=== PATIENT | male | born 1970 | race Caucasian/White ===

== ENCOUNTER 2021-09-29 17:33 | Emergency (ER) | payer OTHER, SELFPAY ==
--- NOTE | ~2021-09-29 | XR_ITS ---
EXAMINATION: XR chest 2V Exam Date/Time: 09/29/2021 18:12 CDT CLINICAL HISTORY: cough fever x3 days/cough since covid in June Comparison: None available. RESULT: Lines, tubes, and devices: None. Lungs and pleura: Clear. Ill-defined opacities in the bilateral lower lungs likely reflect overlying soft tissues. Cardiomediastinal silhouette: Normal cardiomediastinal silhouette. Other: No acute osseous or upper abdominal finding. Degenerative changes in the spine. IMPRESSION: No acute cardiopulmonary process Reviewed, dictated and finalized at location K.
[2021-09-29 17:43] VITALS: BP 149/74; PULSE 91; RESP 20; TEMP 37; O2SAT 98
--- NOTE | 2021-09-29 17:56 | ED.URI ---
HPI - URI/Sore Throat General Chief Complaint: Upper Respiratory Infection Stated Complaint: cough/fever/charlton Time Seen by Provider: 09/29/21 17:56 Source: patient Mode of arrival: ambulatory Limitations: no limitations History of Present Illness HPI Narrative: Josué Galvan is a 51 yo male with a PMH of HTN, high cholesterol, seasonal allergies, who comes to [facility] for complaints of cough that have not gone away since he had COVID at the end of June. Started coughing on Friday and is gradually gotten worse and today now has a low-grade fever and he is concerned about worsening symptoms. complaining of mild congestion Related Data Home Medications Medication Instructions Recorded Confirmed lisinopril 20 mg tablet 20 mg PO DAILY 08/21/20 09/29/21 atorvastatin 20 mg PO DAILY 09/29/21 09/29/21 montelukast 10 mg PO DAILY 09/29/21 09/29/21 Allergies Allergy/AdvReac Type Severity Reaction Status Date / Time No Known Drug Allergies Allergy Unknown Unknown Verified 09/29/21 17:39 Review of Systems Review of Systems: CONSTITUTIONAL: Denies fever, chills, sweats. EYES: Denies visual changes, redness, discharge. ENT: Denies rhinorrhea, some congestion, sore throat, left otalgia. CARDIOVASCULAR: Denies chest pain, palpitations, edema. RESPIRATORY: Denies dyspnea, wheezing, has dry cough GASTROINTESTINAL: Denies abdominal pain, nausea, vomiting, diarrhea. GENITOURINARY: Denies dysuria, hematuria, abnormal discharge SKIN: Denies rash or itching. NEUROLOGIC: Denies numbness, or focal weakness. PSYCHIATRIC: Denies anxiety or depression. [facility] Past Medical History Medical History Acquired cavovarus deformity of left foot High cholesterol HTN (hypertension) Peroneal tendinitis of left lower leg Surgical History Surgical History History of foot surgery Dr. Radha Vergara Family History Family History Father Family history of diabetes mellitus in first degree relative Acute myocardial infarction Heart disease Diabetes mellitus Mother Cerebrovascular accident Other Family history of cardiovascular disease Hypertension Social History Social History (Reviewed 09/29/21 @ 18:15 by PRIMO Wilkins Smoking status: Never smoker Alcohol intake: never Substance use: never Substance use type: does not use Gender identity (if verbalized by the patient): Male Comments At time of signature, I agree with nursing past medical, surgical, social and family history. There is no relevant family history pertinent to the presenting complaint. Blood pressure elevated at this visit Exam Narrative: GENERAL: This is a well-nourished, well-developed patient, in mild distress. HEAD: normocephalic, atraumatic. EYES: Sclera clear/white. Vision is grossly intact. EARS: External ears normal, left auditory canals erythema and without drainage, bulging TM . Hearing grossly intact. NOSE: External nose normal without nasal discharge, nares without redness, no rhinorrhea. THROAT: Mucous membranes moist, NECK: Neck supple, non-tender CARDIOVASCULAR: Regular rate and rhythm without murmurs, gallops, or rubs. He has dry cough during exam RESPIRATORY: Coarse to auscultation. Breath sounds equal bilaterally. No wheezes, rales, or rhonchi. GASTROINTESTINAL: Abdomen soft SKIN: warm, intact with no suspicious lesions or rash, good texture and turgor. NEURO: awake, alert, and oriented to person, place and time. There were no obvious focal neurologic abnormalities. Steady gait EXTREMITIES: Normal range of motion. BACK: Nontender without deformity Course Course Emergency Course: Patient here with complaints of cough and increased congestion and low-grade fever that started today. He had been increased coughing since Friday Flu test done-negative C
[2021-09-29 18:55] VITALS: PULSE 91; RESP 20; O2SAT 98
[2021-09-29] MEDS: ALBUTEROL SULFATE NEB 2.5 MG/3 ML INH INHALATION (19:01)
[2021-09-29] MEDS: predniSONE 20 MG TABLET 60 MG PO (19:01)
[2021-09-29 19:10] VITALS: PULSE 88; RESP 18; O2SAT 98
== END 2021-09-29 19:30 | disposition home or self-care (01) ==
PROVIDERS: Emergency Provider Nurse Practitioner; PCP Internal Medicine
DX: J20.9 Acute bronchitis, unspecified (principal); I10 Essential (primary) hypertension
CPT/HCPCS: 71046; 87804; 94640; 99213; G0463; J7512

== ENCOUNTER 2021-12-31 08:28 | Outpatient (CLI) | payer OTHER, SELFPAY ==
--- NOTE | 2021-12-31 | ECHO_ITS ---
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 Summary 1. Complete two-dimensional, color flow and Doppler transthoracic echocardiogram is performed. 2. Left ventricular chamber dimension is normal. 3. Left ventricular systolic function is normal, estimated at 55-60%. 4. The left ventricular diastolic function is abnormal. 5. E/e' 11 is mildly elevated. 6. Right ventricular chamber dimension is moderately enlarged. 7. Right ventricular systolic function is moderately reduced. 8. There is mild aortic valve sclerosis. 9. No pulmonary hypertension, estimated pulmonary arterial systolic pressure is 24 mmHg. Left Ventricle E/e' 11 is mildly elevated. Left ventricular chamber dimension is normal. Left ventricular systolic function is normal, estimated at 55-60%. The left ventricular diastolic function is abnormal. Right Ventricle Moderator band noted is normal variant. Right ventricular chamber dimension is moderately enlarged. Right ventricular systolic function is moderately reduced. Left Atria Left atrial chamber dimension is normal. Right Atria Right atrial chamber dimension is moderately enlarged. Aortic Valve The aortic valve is trileaflet. There is mild aortic valve sclerosis. There is no aortic valve stenosis. There is no aortic valve regurgitation. Pulmonic Valve There is no pulmonic regurgitation. Mitral Valve There is no mitral valve stenosis. There is no mitral valve regurgitation. Tricuspid Valve There is no tricuspid valve regurgitation. No pulmonary hypertension, estimated pulmonary arterial systolic pressure is 24 mmHg. Pericardium/Pleural There is no pericardial effusion. Inferior Vena Cava Normal inferior vena cava with >50% collapse upon inspiration consistent with normal right atrial pressure, 5 mmHg. Aorta The aortic root size at the sinus of Valsalva is normal. Left Ventricular Outflow Tract Name Value Normal LVOT 2D LVOT Diameter 2.3 cm LVOT Doppler LVOT Peak Gradient 3 mmHg LVOT Mean Gradient 2 mmHg LVOT VTI 19 cm LVOT VTI/AV VTI Ratio 1.1 LVOT Stroke Volume 79 ml LVOT CO 5.5 l/min LVOT CI 2.2 l/min/m2 Pulmonic Valve Name Value Normal
== END 2021-12-31 08:29 | disposition home or self-care (01) ==
PROVIDERS: PCP Internal Medicine; Visit Provider Internal Medicine
DX: Q23.1 Congenital insufficiency of aortic valve (principal)
CPT/HCPCS: 93306

== ENCOUNTER 2023-08-10 17:56 | Emergency (ER) | payer OTHER, SELFPAY ==
--- NOTE | 2023-08-10 18:03 | ED.GENADULT ---
HPI - General Adult General Chief complaint: Ear Stated complaint: Lt Ear Irritation Time Seen by Provider: 08/10/23 18:03 Source: patient Mode of arrival: ambulatory Limitations: no limitations History of Present Illness HPI narrative: 53-year-old male patient presents to the [facility] with complaints of left ear pain. Patient states pain in the ear has been off and on for the past week but is got more consistent since yesterday. Denies any fevers body aches or chills. Denies any runny nose, sore throat or sneezing. Patient states he does typically wear hearing aids to bilateral ears. Denies any discharge from the ear. Denies any recent trauma to the ear. Related Data Home Medications Medication Instructions Recorded Confirmed cholecalciferol (vitamin D3) 50 50 mcg PO DAILY 08/29/22 04/16/23 mcg (2,000 unit) capsule mecobalamin (vitamin B12) 1,000 1,000 mcg PO DAILY 08/29/22 04/16/23 mcg chewable tablet omega 8-rxk-hym-fish oil 1,000 mg 1 cap PO DAILY 08/29/22 04/16/23 (120 mg-180 mg) capsule (Fish Oil) rosuvastatin 20 mg tablet 20 mg PO DAILY 10/28/22 04/16/23 psyllium husk 0.52 gram capsule 0.52 g PO DAILY 08/10/23 08/10/23 (Fiber-Caps (psyllium husk)) Allergies Allergy/AdvReac Type Severity Reaction Status Date / Time No Known Drug Allergies Allergy Unknown Unknown Verified 08/10/23 18:05 Review of Systems Review of Systems: CONSTITUTIONAL: Denies fever, chills, or sweats. EYES: Denies visual changes, redness, or discharge. ENT: Denies rhinorrhea, congestion, sore throat, Positive left otalgia. CARDIOVASCULAR: Denies chest pain, palpitations, or edema. RESPIRATORY: Denies cough or dyspnea. GASTROINTESTINAL: Denies abdominal pain, nausea, vomiting, or diarrhea. GENITOURINARY: Denies dysuria or hematuria. SKIN: Denies rash or itching. MUSCULOSKELETAL: Denies back pain, joint pain, or myalgia. NEUROLOGIC: Denies headache, numbness, or weakness. PSYCHIATRIC: Denies anxiety or depression. [facility] Past Medical History Medical History Abnormal skin growth Acquired cavovarus deformity of left foot Annual physical exam Atypical nevi BPH (benign prostatic hyperplasia) Encounter for screening for malignant neoplasm of prostate Establishing care with new doctor, encounter for High cholesterol HTN (hypertension) Hyperglycemia Peroneal tendinitis of left lower leg Surgical History Surgical History History of foot surgery Dr. Radha Vergara History of tonsillectomy Family History Family History Father Family history of diabetes mellitus in first degree relative Acute myocardial infarction Heart disease Diabetes mellitus Mother Cerebrovascular accident Other Family history of cardiovascular disease Hypertension Social History Social History Smoking status: Never smoker Alcohol intake: never Substance use: never Substance use type: does not use Living arrangements: with family Occupation/Education: occupation Gender identity (if verbalized by the patient): Male Agree to blood products: Yes Comments At the time of my signature I agree with nursing past medical history, surgical, social, and family history. There is no relevant family history pertinent to the presenting complaint. Exam Narrative: GENERAL: Well-appearing, well-nourished, and in no acute distress. HEAD: Normocephalic, atraumatic. EYES: PERRLA and EOMI. ENT: Nares clear, no rhinorrhea or epistaxis. Mucous membranes moist. posterior pharynx with no erythema, tonsillar enlargement, exudates or lesions present. The left ear does appear to have little bit of fluid behind the eardrum but no erythema, no bulging no concerns for infection at this time. NECK: Supple. No lymphadenop
[2023-08-10 18:05] VITALS: BP 140/81; PULSE 70; RESP 18; TEMP 36.4; O2SAT 100
[2023-08-10 18:07] VITALS: BP 140/81; PULSE 70; RESP 18; TEMP 36.4; O2SAT 100
== END 2023-08-10 18:21 | disposition home or self-care (01) ==
PROVIDERS: Emergency Provider Nurse Practitioner Family; PCP Family Medicine
DX: H73.892 Other specified disorders of tympanic membrane, left ear (principal); N40.0 Benign prostatic hyperplasia without lower urinary tract symptoms; E78.00 Pure hypercholesterolemia, unspecified; I10 Essential (primary) hypertension
CPT/HCPCS: 99211; 99213; G0463

== ENCOUNTER 2023-09-12 15:50 | Outpatient (CLI) | payer OTHER, SELFPAY ==
--- NOTE | ~2023-09-12 | MR_ITS ---
EXAMINATION: MR shoulder LT wo con DATE: 09/12/2023 16:42 INDICATION: Left rotator cuff tear. Left upper arm pain. TECHNIQUE: Magnetic resonance imaging (MRI) of the left shoulder was performed without intravenous co ntrast. Sequences included axial PD-weighted FS FSE, coronal oblique PD-weighted FS FSE and T2-weight ed FS FSE, and sagittal oblique T2-weighted FS FSE and T1-weighted FSE. COMPARISON: None. FINDINGS: Coracoacromial arch: The acromion undersurface is flat in morphology (type I). There is severe acromioclavicular joint ost eoarthritis including inferiorly directed osteophytes. There is mild subacromial/subdeltoid bursitis. Rotator cuff: There is an articular sided partial tear of supraspinatus and infraspinatus tendons measuring 2.5 cm anterior to posterior by 2.4 cm proximal to distal by 60% tendon thickness. Teres minor tendon is nor mal. There is moderate subscapularis tendinopathy. There is edema at the myotendinous junction of ter es minor, consistent with mild strain. There is no asymmetric fatty atrophy of the rotator cuff muscl e bellies. Biceps tendon and glenoid labrum: There is a complete tear of proximal biceps tendon. There is degenerative tearing of the glenoid labr um. Fluid: There is a small glenohumeral joint effusion. Bones/cartilage: There is shallow partial-thickness cartilage loss of humeral head and glenoid. IMPRESSION: 1. Articular-sided, partial-thickness tear of supraspinatus and infraspinatus tendons. 2. Mild glenohumeral joint chondrosis. 3. Complete tear of proximal biceps tendon. 4. Severe acromioclavicular joint osteoarthritis. 5. Small glenohumeral joint effusion. 6. Mild subacromial/subdeltoid bursitis. Reviewed, dictated and finalized at location E. IMPRESSION: 1. Articular-sided, partial-thickness tear of supraspinatus and infraspinatus t endons. 2. Mild glenohumeral joint chondrosis. 3. Complete tear of proximal biceps tendon. 4. Severe acromioclavicular joint osteoarthritis. 5. Small glenohumeral joint effusion. 6. Mild subacromial/subdeltoid bursitis.
== END 2023-09-12 15:51 ==
DX: M75.112 Incomplete rotator cuff tear or rupture of left shoulder, not specified as traumatic (principal); M94.212 Chondromalacia, left shoulder; S46.212A Strain of muscle, fascia and tendon of other parts of biceps, left arm, initial encounter; M19.012 Primary osteoarthritis, left shoulder; M25.412 Effusion, left shoulder; M75.52 Bursitis of left shoulder; X58.XXXA Exposure to other specified factors, initial encounter
CPT/HCPCS: 73221

== ENCOUNTER 2024-12-19 12:05 | Emergency (ER) | payer OTHER, SELFPAY ==
--- NOTE | ~2024-12-19 | CT_ITS ---
EXAMINATION: CT abdomen pelvis wo con DATE: 12/19/2024 14:43 INDICATION: R CVA TTP, hx herniated disc; R back pain TECHNIQUE: Computed tomography (CT) of the abdomen and pelvis was performed without intravenous contr ast. Automated exposure control and iterative reconstruction technique were employed. The dose-length product was 1082.64 mGy-cm. COMPARISON: None. FINDINGS: Lower thorax: Motion artifact in the lung bases. Liver: Nodular liver border. Recanalized umbilical vein. Biliary/Gallbladder: Gallbladder is normal. No bile duct dilation. Pancreas: No mass or duct dilation. Spleen: Enlarged. Adrenals:No mass. Kidneys: Punctate right lower pole calcification. Mild right perinephric stranding and periureteral s tranding. Mild right hydronephrosis. Small left upper pole AML. GI tract: Small hiatal hernia. Single loop of mildly dilated small bowel in the left upper quadrant, with gradual transition points and no obstructing mass or other lesion detected. Normal appendix. Mesentery/Peritoneum: Enlarged upper mesenteric and portacaval nodes. No ascites, other mass, or free air. Retroperitoneum: No mass. Atherosclerotic calcifications of intra-abdominal arterial vessels. Pelvis: 4 mm calcification in the bladder lumen. Urinary bladder otherwise normal. Prostatomegaly. Soft Tissues: Small uncomplicated bilateral inguinal hernias. Small umbilical hernia containing mesen teric fat and mesenteric vessels. Bones: No acute osseous finding. Multilevel severe lumbar degenerative disc disease. Multilevel face t arthropathy. Severe bilateral neural foraminal narrowing at L5-S1 secondary to degenerative changes . Severe central canal narrowing at L1-2 through L3-4 secondary to degenerative changes. IMPRESSION: 4 mm calcification in the urinary bladder lumen with mild right perinephric and periureteral strandin g and mild right hydronephrosis likely representing a recently passed stone. Cirrhosis with portal hypertension. Single loop of dilated small bowel in the left upper quadrant, presumably reflecting focal ileus. Ear ly obstruction is not excluded. Upper abdominal lymphadenopathy. No acute fracture or traumatic malalignment detected in the lumbar spine. Multilevel severe degenerat john disc disease. Multilevel severe central canal narrowing and severe bilateral neural foraminal gold rowing at L5-S1 secondary to degenerative changes. Reviewed, dictated and finalized at location K. IMPRESSION: 4 mm calcification in the urinary bladder lumen with mild right perinephric and periureteral stranding and mild right hydronephrosis likely representing a rec ently passed stone. Cirrhosis with portal hypertension. Single loop of dilated small bowel in the left upper quadrant, presumably refle cting focal ileus. Early obstruction is not excluded. Upper abdominal lymphadenopathy. No acute fracture or traumatic malalignment detected in the lumbar spine. Multi level severe degenerative disc disease. Multilevel severe central canal narrowi ng and severe bilateral neural foraminal narrowing at L5-S1 secondary to degene rative changes.
--- OUTSIDE RECORDS SUMMARY | 2024-12-19 12:07 | XMS_ITS | Clinical Summary ---
Author Organization [facility] Address [address] [place] [address] Care Team Providers Care Security Alarm Installer Name Role Phone Lucila Burrell PA-C Primary Care Provider +1- [phone] Allergies No known active allergies Medications pantoprazole EC (PROTONIX) 40 MG tablet Take 1 tablet (40 mg total) by mouth daily. 09/25/19 23 Active OPZELURA 1.5 % Cream Apply topically see administration instructions. 09/25/19 23 Active vitamin B-12 (CYANOCOBALAMIN) (CYANOCOBALAMIN) 1000 mcg tablet Take 1 tablet (1,000 mcg total) by mouth daily. Active Vitamin D3 (CHOLECALCIFEROL ) 50 mcg tablet Take 1 tablet (50 mcg total) by mouth daily. Active fish oil (OMEGA-3 FATTY ACID) 1000 MG Cap capsule Take 1 capsule (1,000 mg total) by mouth daily. Active losartan (COZAAR) 25 MG tabletIndication s:Primary hypertension Take 1 tablet (25 mg total) by mouth daily. 10/29/19 23 Active polycarbophil (FIBER) 625 MG tablet Take 1 tablet (625 mg total) by mouth daily. Active rosuvastatin (CRESTOR) 20 MG tabletIndication s:Hyperlipidemia , mixed,Coronary artery calcification,Co ronary artery disease involving [place] coronary artery of [place] heart without angina pectoris TAKE 1 TABLET NIGHTLY AT BEDTIME 90 tablet 2 04/21/20 24 Active Active Problems Problem Noted Date Diagnosed Date Encounter for screening colonoscopy 02/17/2023 Overview (02/17/2023): Added automatically from request for surgery [id number] Resolved Problems Problem Noted Date Diagnosed Date Resolved Date Screening for colon cancer 04/22/2023 1 06/29/2022 Screening for colon cancer 04/22/2023 1 07/20/2022 Screening for colon cancer 04/22/2023 0 06/16/2023 Screening for colon cancer 04/22/2023 0 06/23/2023 Screening for colon cancer 04/22/2023 0 06/30/2023 Family History Medical History Relation Comments Diabetes Father Heart Attack Father Hyperlipidemia Father Hypertension Father Stroke Mother Atrial fibrillation Sister Hypertension Sister Relation Status Comments Brother Alive Father Mother Sister Alive Social History Tobacco Use Types Packs/Day Years Used Date Smoking Tobacco: Never Smokeless Tobacco: Never Tobacco Cessation:Counseling Given: Not Answered Alcohol Use Standard Drinks/Week Comments Not Currently 0 (1 standard drink = 0.6 oz pur e alcohol) PHQ-2 Answer Date Recorded Patient Health Questionnaire-2 Score 0 02/14/2023 Sex and Gender Information Value Date Recorded Sex Assigned at Not on file Legal Sex Male 7:57 PM CDT Gender Identity Not on file Sexual Orientation Not on file Occupation Industry Job Start Date Job End Date Teacher Not on file Not on file Not on file Last Filed Vital Signs Vital Sign Reading Time Taken Comments Blood Pressure 132/76 03/22/2024 2:27 PM CDT Pulse 82 03/22/2024 2:27 PM CDT Temperature 36.6 C (97.8 F) 06/25/2023 11:34 AM CLINICAL BUSINESS ANALYST Respiratory Rate 16 06/25/2023 11:3 4 AM CLINICAL BUSINESS ANALYST Oxygen Saturation 95% 03/22/2024 2:27 PM CDT Inhaled Oxygen Concentration - - Weight 134.6 kg (296 lb 12.8 oz) 03/22/2024 2:27 PM CDT Height 177.8 cm (5' 10) 03/22/2024 2:27 PM CDT Body Mass Index 42.59 03/22/2024 2:27 PM CDT Plan of Treatment Health Maintenance Due Date Last Done Comments Annual Physical 1971 Hepatitis C 1986 DTaP, Tdap and Td Vaccines (1 - Tdap) 1987 Hepatitis B Vaccines (1 of 3 - 19+ 3-dose series) 1987 Pneumococcal Vaccine: 50+ Years (1 of 2 - PCV) 1987 ASCVD LDL 12/28/2023 12/27/2022, 09/0 07/2020, 01/03/2018, Additional history exists COVID-19 Vaccine ( - 2023- season) 2024 03/28/2021, 08/05/2020, 07/08/2020 PHQ-2 (Physician [place]) 05/26/2024 02/14/2023 Colorectal Cancer Screening Colonoscopy (10 Years) 06/25/2033 06/25/2023 Zoster Vaccines Completed 07/07/2022, 04/16/2022 Meningococcal B Vaccine Aged Out No l onger eligible based on patient's age to complete this topic Meningococcal Vaccine Aged Out No lili shawn eligible based on patient's age to complete this topic RSV Immunizations Under 20 Months Aged Out No longer eligible based on patient's age to complete this topic Procedures Procedure Name Priority Date/Time Associated Diagnosis Comments LIPID PANEL Routine 12/27/2022 from Last 3 Months or Most Recently Relevant to Health Maintenance Results * LIPID PANEL (12/27/2022) CHOLESTEROL 121 HDL 33 TRIGLYCERIDES 184 NON HDL CHOLESTEROL 88 LDL (CALCULATED) 62 12/27/2022 us Default History Genericprovider LABORATORY Final Result from Last 3 Months or Most Recently Relevant to Health Maintenance Insurance Care Teams Security Alarm Installer Relationship Specialty Start Date End Date Lucila Burrell PA-C [address] [place] [address] [address] [place] [address] PCP - General PHYSICIAN TIRE SHOP MANAGER 09/10/22
--- OUTSIDE RECORDS SUMMARY | 2024-12-19 12:07 | XMS_ITS | Encounter Summary ---
Author Organization [facility] Address [address] [place] [address] Care Team Providers Care Strainer Mill Operator Name Role Phone Lucila Burrell PA-C Primary Care Provider +1- [phone] Encounter Details Date Type Department Care Team (Late st Contact Info) Description 12/30/2022 Abstract [facility], [address] [address] Hima Chery MA Social History Tobacco Use Types Packs/Day Years Used Date Smoking Tobacco: Never Smokeless Tobacco: Never Alcohol Use Standard Drinks/Week Comments Not Currently 0 (1 standard drink = 0.6 oz pur e alcohol) PHQ-2 Answer Date Recorded Patient Health Questionnaire-2 Score 0 01/03/2023 Sex and Gender Information Value Date Recorded Sex Assigned at Not on file Legal Sex Male 7:57 PM CDT Gender Identity Not on file Sexual Orientation Not on file Occupation Industry Job Start Date Job End Date Teacher Not on file Not on file Not on file documented as of this encounter Plan of Treatment Not on file documented as of this encounter Procedures Procedure Name Priority Date/Time Associated Diagnosis Comments LIPID PANEL Routine 12/27/2022 documented in this encounter Results * LIPID PANEL (12/27/2022) CHOLESTEROL 121 HDL 33 TRIGLYCERIDES 184 NON HDL CHOLESTEROL 88 LDL (CALCULATED) 62 12/27/2022 us Default History Genericprovider LABORATORY Final Result documented in this encounter Visit Diagnoses Not on filedocumented in this encounter Care Teams Strainer Mill Operator Relationship Specialty Start Date End Date Lucila Burrell PA-C [address] [place] [address] [address] [place] [address] PCP - General PHYSICIAN FILTRATION OPERATOR 09/10/22 documented as of this encounter
--- OUTSIDE RECORDS SUMMARY | 2024-12-19 12:07 | XMS_ITS | Encounter Summary ---
Author Organization [facility] Address [facility] [place] [address] Care Team Providers Care Cloth Grader Name Role Phone Lucila Burrell PA-C Primary Care Provider +1- [phone] Encounter Details Date Type Department Care Team (Late st Contact Info) Description 06/27/2023 D square nv Message Enc [facility] [address] [address] Jaskaran Umanzor MD [address] [place] [phone] colonoscopy Social History Tobacco Use Types Packs/Day Years [...] on file documented as of this encounter Visit Diagnoses Not on filedocumented in this encounter Care Teams Cloth Grader Relationship Specialty Start Date End Date Lucila Burrell PA-C [address] [place], [place] [address] [place] [address] PCP - General PHYSICIAN ROOFER GYPSUM 09/10/22 documented as of this encounter
--- OUTSIDE RECORDS SUMMARY | 2024-12-19 12:07 | XMS_ITS | Encounter Summary ---
Author Organization [facility] Address [address] [place] [address] Care Team Providers Care Talent Development Consultant Name Role Phone Lucila Burrell PA-C Primary Care Provider +1- [phone] Encounter Details Date Type Department Care Team (Late st Contact Info) Description 12/29/2023 GüvenRehberi Message Enc [place] [facility] [facility], [address] [place], [place] [id number] Eder Wall MD Three [facility] [address] [place] [address] Blood work Social History Tobacco Use Types Packs/Day Years [...] on filedocumented in this encounter Care Teams Talent Development Consultant Relationship Specialty Start Date End Date Lucila Burrell PA-C [address] [place], [place] [address] [place] [address] PCP - General PHYSICIAN CARPENTER ASSISTANT INSTALLER 09/10/22 documented as of this encounter
[2024-12-19 12:21] VITALS: BP 152/68; PULSE 66; RESP 14; TEMP 36.6; O2SAT 98
--- OUTSIDE RECORDS SUMMARY | 2024-12-19 13:18 | XMS_ITS | Encounter Summary ---
Author Organization [facility] Address [facility] [place] [address] Care Team Providers Care Swim Instructor Name Role Phone Lucila Burrell PA-C Primary Care Provider +1- [phone] Encounter Details Date Type Department Care Team (Late st Contact Info) Description 06/27/2023 Mobilitrix Message Enc [facility] [address] [address] Jaskaran Umanzor MD [address] [place] [phone] colonoscopy Social History Tobacco Use Types [...] on filedocumented in this encounter Care Teams Swim Instructor Relationship Specialty Start Date End Date Lucila Burrell PA-C [address] [place], [place] [address] [place] [address] PCP - General PHYSICIAN INSURANCE SPECIALIST 09/10/22 documented as of this encounter
--- OUTSIDE RECORDS SUMMARY | 2024-12-19 13:18 | XMS_ITS | Encounter Summary ---
Author Organization [facility] Address [address] [place] [address] Care Team Providers Care Finger Buffs Assembler Name Role Phone Lucila Burrell PA-C Primary Care Provider +1- [phone] Encounter Details Date Type Department Care Team (Late st Contact Info) Description 12/30/2022 Abstract [facility], [address] [address] Hima Chery MA Social History Tobacco Use [...] on filedocumented in this encounter Care Teams Finger Buffs Assembler Relationship Specialty Start Date End Date Lucila Burrell PA-C [address] [place] [address] [address] [place] [address] PCP - General PHYSICIAN BATTERY CHECKER 09/10/22 documented as of this encounter
--- OUTSIDE RECORDS SUMMARY | 2024-12-19 13:18 | XMS_ITS | Encounter Summary ---
Author Organization [facility] Address [address] [place] [address] Care Team Providers Care Sales Program Coordinator Name Role Phone Lucila Burrell PA-C Primary Care Provider +1- [phone] Encounter Details Date Type Department Care Team (Late st Contact Info) Description 12/29/2023 FormaFina Message Enc [place] [facility] [facility], [address] [place], [place] [id number] Eder Wall MD Three [facility] [address] [place] [address] Blood work Social History Tobacco [...] on filedocumented in this encounter Care Teams Sales Program Coordinator Relationship Specialty Start Date End Date Lucila Burrell PA-C [address] [place], [place] [address] [place] [address] PCP - General PHYSICIAN CAPACITOR TESTER 09/10/22 documented as of this encounter
--- OUTSIDE RECORDS SUMMARY | 2024-12-19 13:18 | XMS_ITS | Clinical Summary ---
Author Organization [facility] Address [address] [place] [address] Care Team Providers Care Director Insurance Name Role Phone Lucila Burrell PA-C Primary Care Provider [phone]- [phone] Allergies No known active allergies Medications pantoprazole [...] mixed,Coronary artery calcification,Co ronary artery disease involving soboba coronary artery of soboba heart without angina pectoris TAKE 1 TABLET NIGHTLY AT BEDTIME 90 tablet 2 04/21/20 24 Active Active Problems Problem Noted Date Diagnosed Date Encounter for screening colonoscopy 02/17/2023 Overview (02/17/2023): Added automatically from request for surgery [id number] Resolved Problems Problem Noted Date Diagnosed Date [...] 36.6 C (97.8 F) 06/25/2023 11:34 AM NETWORK CONTROLLER Respiratory Rate 16 06/25/2023 11:3 4 AM NETWORK CONTROLLER Oxygen Saturation 95% 03/22/2024 2:27 PM CDT [...] season) 2024 03/28/2021, 08/05/2020, 07/08/2020 PHQ-2 (Physician [place]) 05/26/2024 02/14/2023 Colorectal Cancer Screening Colonoscopy (10 [...] Most Recently Relevant to Health [place] [id number] Care Teams Director Insurance Relationship Specialty Start Date End Date Lucila Burrell PA-C [address] [place] [address] [address] [place] [address] PCP - General PHYSICIAN [employer] 09/10/22
--- NOTE | 2024-12-19 14:11 | ED_ITS ---
HPI - Back Pain/Injury General Chief Complaint: Back Pain/Injury Stated Complaint: back pain Time Seen by Provider: 12/19/24 13:03 Source: patient and family Mode of arrival: ambulatory Limitations: no limitations History of Present Illness HPI Narrative: Patient presents with back pain. He has chronic back pain to some degree but this episode is acute. History herniated discs. Has not taken any APAP or ibuprofen yet today. Took 5mg cyclobenzaprine this morning without relief. Feels goofy and thinks it may be due to this. Hasn't been nauseated per say but has been dry heaving. No paresthesias or saddle anesthesia. Pain is across low/mid back but R > L. Otherwise does not radiate. Denies bowel or bladder incontinence. States today it has felt like he needs to have a bowel movement but states then he will feel like he can't or he will have one but feel like he has to go again. Has had 3 bowel movements today. Has an appointment with his dad's chiropractor tomorrow. History skin cancer. Has had decreased PO intake. Has had urinary frequency but this is chronic; otherwise no dysuria hematuria or urgency. No IVDU. No fevers but chills. Not on anticoagulation. No trauma. No history HIV, chronic steroid use, or otherwise immunocompromised. Related Data Home Medications ?Medication ?Instructions ?Recorded ?Confirmed ?Last Taken ?Type cholecalciferol (vitamin D3) 50 50 mcg PO DAILY 08/29/22 11/18/24 Unknown History mcg (2,000 unit) capsule mecobalamin (vitamin B12) 1,000 1,000 mcg PO DAILY 08/29/22 11/18/24 Unknown History mcg chewable tablet omega 0-qzm-bmc-fish oil 1,000 mg 1 cap PO DAILY 08/29/22 11/18/24 Unknown History (120 mg-180 mg) capsule (Fish Oil) psyllium husk 0.52 gram capsule 0.52 g PO DAILY 08/10/23 11/18/24 Unknown History (Fiber-Caps (psyllium husk)) Allergies Allergy/AdvReac Type Severity Reaction Status Date / Time No Known Drug Allergies Allergy Unknown Unknown Verified 10/26/24 10:25 [facility] Past Medical History Medical History (Updated 12/20/24 @ 07:12 by Lucila Burrell PA-C) Lumbar foraminal stenosis Central stenosis of spinal canal Hyperglycemia Atypical nevi BPH (benign prostatic hyperplasia) High cholesterol HTN (hypertension) Acquired cavovarus deformity of left foot Peroneal tendinitis of left lower leg Surgical History Surgical History History of tonsillectomy History of foot surgery Dr. Radha Vergara Family History Family History Father Family history of diabetes mellitus in first degree relative Acute myocardial infarction Heart disease Diabetes mellitus Mother Cerebrovascular accident Other Family history of cardiovascular disease Hypertension Social History Social History Social History: 04/28/24 patient declined SDOH Smoking status: Never smoker Alcohol intake: never Substance use: never Substance use type: does not use Other substance usage details: denies IVDU Living arrangements: with family Occupation/Education: occupation Gender identity (if verbalized by the patient): Male Agree to blood products: Yes Exam Narrative: GENERAL: Well-appearing, well-nourished, and in no acute distress. HEAD: Normocephalic, atraumatic. EYES: Non injected, non icteric ENT: Nares clear, no rhinorrhea or epistaxis. Gross auditory acuity intact. NECK: Supple. No meningismus. CHEST: Speaking in full sentences. No respiratory distress. HEART: Regular rate and rhythm. . ABDOMEN: Soft, nondistended. No rigidity or guarding. Not peritoneal BACK: R CVA tenderness, not present on the L. Negative straight leg exam. Demonstrates flexion and extension about lumbar spine. No TTP midline spinous processes EXTREMITIES: Normal range of motion. No lower extremity edema. : Urine in cup at beside appears dark / orange SKIN: Warm, dry. Viteligo. NEURO: No focal deficits. Alert and oriented. Answering questions. Following commands. Normal speech without aphasia or dysarthria. Sensation intact throughout lower extremities. 5/5 strength b/l ankle dorsiflexion/plantarflexion, b/l knee flexion/extension, b/l hip flexion/abduction/adduction. PSYCH: Normal mood and affect. Course Vital Signs Vital signs: Vital Signs Temperature 97.8 F 12/19/24 12:21 Pulse Rate 66 12/19/24 12:21 Respiratory Rate 14 12/19/24 12:21 Blood Pressure 152/68 H 12/19/24 12:21 Pulse Oximetry 98 12/19/24 12:21 Oxygen Delivery Room Air 12/19/24 12:21 Temperature 97.8 F 12/19/24 12:21 Pulse Rate 66 12/19/24 12:21 Respiratory Rate 14 12/19/24 12:21 Blood Pressure 152/68 H 12/19/24 12:21 Pulse Oximetry 98 12/19/24 12:21 Oxygen Delivery Room Air 12/19/24 12:21 MDM - Back Pain/Injury MDM Narrative Medical decision making narrative: Patient presents with back pain. Hx of chronic back pain but this is acute. No interval trauma/injury. No paresthesias or incontinence bowel/bladder. In the emergency department he is afebrile with vital signs notable for hypertension. Curvature is within normal limits. No tenderness is noted on palpation of the spinous processes which are midline. Patient demonstrates flexion, extension of the lumbar spine. Sensation to the lower extremities is normal bilaterally. Dorsi/plantar flexion is normal bilaterally. Straight leg raise test is negative bilaterally. They do not have any other red flags for fracture, infection (e.g. spinal epidural abscess), or aortic/vascular: Age, no trauma, not on chronic steroids, no fever, IV drug use, HIV, immunosuppression, abdominal pain, tearing pain, syncope. However, he does have history of cancer, R CVA tenderness and He does have hematuria on UA but no signs of infection. Will proceed with CT imaging. 125mL voided, PVR <50cc. Patient is reassessed at 3:45 p.m.. We discussed that the symptoms sound musculoskeletal, there was also concern for a kidney stone it does appear that he has started to pass 1. Will treat as both. Had already received opiate medication. Given Ketorolac and tamsulosin and DC'd with Rx for multimodal pain relief (with ketorolac as the NSAID) as well as expulsion therapy. Advised to strain urine. Given urology follow up. Otherwise non toxic appearing and stable for discharge. Differential Diagnosis Differential diagnosis: Likely lumbar radiculopathy, sciatica, strain of lumbar region, renal colic, pyelonephritis, thoracic back pain, discitis and other Lab Data Attestation: I reviewed the patient's lab results. Labs: Lab Results 12/19/24 Range/Units 14:36 Urine Color Yellow (Yellow) Urine Appearance Clear (Clear) Urine pH 5.5 (5.0-9.0) Ur Specific [place] 1.018 (1.001-1.035) Urine Protein Trace (Negative) mg/dL Urine Glucose (UA) Negative (Negative) mg/dL Urine Ketones Negative (Negative) mg/dL Ur Blood (Man) 3+ H (Negative) Urine Nitrate Negative (Negative) Urine Bilirubin Negative (Negative) Urine Urobilinogen 1.0 (<2.0) mg/dL Leukocyte Esterase Rfl Negative (Negative) KENDY/UL Urine RBC 51-100 H (0-2) /hpf Urine WBC 0-5 (0-3) /hpf Ur Squamous Epith Cells None seen (Few) /hpf Urine Bacteria None seen /hpf Urine Casts 0-2 Imaging Data Radiologist's impression: IMPRESSION: 4 mm calcification in the urinary bladder lumen with mild right perinephric and periureteral stranding and mild right hydronephrosis likely representing a recently passed stone. Cirrhosis with portal hypertension. Single loop of dilated small bowel in the left upper quadrant, presumably reflecting focal ileus. Early obstruction is not excluded. Upper abdominal lymphadenopathy. No acute fracture or traumatic malalignment detected in the lumbar spine. Multilevel severe degenerative disc disease. Multilevel severe central canal narrowing and severe bilateral neural foraminal narrowing at L5-S1 secondary to degenerative changes. Discharge Plan Discharge Clinical Impression: Bladder stone, Hydronephrosis, Cirrhosis, Hypertension, portal, Abdominal lymphadenopathy, DDD (degenerative disc disease), lumbar, Acute exacerbation of chronic low back pain Patient Disposition: Home Condition: Stable Instructions: Antibiotic Form, Cirrhosis of the Liver (ED), Acute Low Back Pain (ED), How to Strain Your Urine (ED), Flank Pain (ED), Hydronephrosis (ED), Portal Hypertension (ED), Chronic Back Pain (DC), Degenerative Disc Disease (ED), Lower Back Exercises (ED), Bladder Stones (ED) Additional Instructions: Acetaminophen/Tylenol (maximum 4000 mg per day) is safe to take with NSAIDs (the ketorolac which has been prescribed for kidney stone pain in particular ) for pain relief. The muscle relaxer may help (take either the methocarbamol OR cyclobenzaprine but not both) and there is also a topical approach. Zofran can help with nausea. You can strain your urine and follow-up with urology if desired. Return if new or worsening symptoms or unmanaged symptoms. Patient Language: Malay Prescriptions: New acetaminophen 500 mg capsule 1,000 mg PO Q6H PRN (Reason: pain) Qty: 30 0RF ketorolac 10 mg tablet 10 mg PO Q8H PRN (Reason: pain) Qty: 14 0RF Rx Instructions: maximum total duration of 5 days from all oral, intranasal, or parenteral formulations tamsulosin 0.4 mg capsule 0.4 mg PO DAILY Qty: 7 0RF Rx Instructions: already received first dose in ED ondansetron 4 mg tablet,disintegrating 4 mg PO Q8H PRN (Reason: nausea and vomiting) Qty: 7 0RF lidocaine 4 % adhesive patch,medicated 1 patch topical DAILY PRN (Reason: pain) Qty: 5 0RF methocarbamol 750 mg tablet 1,500 mg PO HS Qty: 14 0RF No Action psyllium husk [Fiber-Caps (psyllium husk)] 0.52 gram Capsule 0.52 g PO DAILY cholecalciferol (vitamin D3) 50 mcg (2,000 unit) capsule 50 mcg PO DAILY mecobalamin (vitamin B12) 1,000 mcg tablet,chewable 1,000 mcg PO DAILY omega 5-fbl-bgv-fish oil [Fish Oil] 1,000 mg (120 mg-180 mg) capsule 1 cap PO DAILY losartan 25 mg tablet 25 mg PO DAILY Qty: 90 1RF rosuvastatin 20 mg tablet 20 mg PO DAILY Qty: 90 1RF cyclobenzaprine 5 mg tablet 5 mg PO TID PRN (Reason: muscle spasm) Qty: 30 0RF benzonatate 200 mg capsule 200 mg PO TID Qty: 30 0RF Follow-up/Referrals: Braxton Lombardi MD [Physician] - Lucila Burrell PA-C [Primary Care Provider] - Stand Alone Forms: Work/School Release IP Time of Disposition: 16:03
[2024-12-19] MEDS: HYDROcodone/acetaminophen (*CRX) 5-325 MG TABLET 1 TAB PO (14:34)
[2024-12-19 14:46] LABS: Add Urine Microscopic? YES; Appearance Urine Clear (Clear); Glucose Urine UA Negative (Negative); Leukocyte Esterase Ur Negative LEU/UL (Negative); Nitrate Urine Negative (Negative); Non Pathogenic Casts 0-2; Specific Grav Ur 1.018 (1.001-1.035)
[2024-12-19] MEDS: KETOROLAC 30 MG/ML VIAL (*BKC) IM (16:33)
[2024-12-19] MEDS: TAMSULOSIN HCL 0.4 MG CAPSULE PO (16:33)
== END 2024-12-19 16:57 | disposition home or self-care (01) ==
PROVIDERS: Emergency Provider Student in an Organized Health Care Education/Training Program; PCP Physician Assistant Medical
DX: M54.50 Low back pain, unspecified (principal); M51.369 Other intervertebral disc degeneration, lumbar region without mention of lumbar back pain or lower extremity pain; G89.29 Other chronic pain; N21.0 Calculus in bladder; N13.30 Unspecified hydronephrosis; R59.1 Generalized enlarged lymph nodes; I10 Essential (primary) hypertension; K74.60 Unspecified cirrhosis of liver; E78.00 Pure hypercholesterolemia, unspecified; N40.0 Benign prostatic hyperplasia without lower urinary tract symptoms; Z85.9 Personal history of malignant neoplasm, unspecified; K76.6 Portal hypertension
CPT/HCPCS: 74176; 81001; 96372; 99284; A9270; J1885